=== PATIENT | female | born 1985 | race Hispanic/Latino ===

== ENCOUNTER 2018-01-28 18:32 | Emergency (ER) | payer OTHER ==
[~2018-01-28 18:32] MED LIST: LEVO500T2 PO; OSEL75 PO
[2018-01-28 19:06] LABS: APPEARANCE,URINE Clear (CLEAR); BILIRUBIN,URINE Negative (NEGATIVE); COLOR,URINE Yellow (YELLOW); GLUCOSE, URINE (UA) Negative (NEGATIVE); KETONES,URINE Negative (NEGATIVE); LEUKOCYTE ESTERASE ,URINE Negative (NEGATIVE); NITRATE,URINE Negative (NEGATIVE); OCCULT BLOOD,URINE Small (NEGATIVE); PH,URINE 6.5 (5.0-8.0); PROTEIN,URINE Negative (NEGATIVE)
[2018-01-28 19:09] LABS: HCG,QUAL RESULT NEGATIVE (NEGATIVE)
[2018-01-28] MEDS ORDERED: IPRATROPIUM/ALBUTEROL SULFATE 3 ML SOLUTION IH ONE (19:11)
[2018-01-28 19:15] LABS: WBC,URINE 0-1 /HPF (0-1)
[2018-01-28 19:16] LABS: BACTERIA,URINE Rare /HPF (None Seen); SQUAMOUS EPITHELIAL CELL,UR Few /HPF (0-2)
== END 2018-01-28 19:57 | disposition home or self-care (01) ==
LOC: EDH 18:32
DX: J18.9 Pneumonia, unspecified organism (principal)
CPT/HCPCS: 71046; 81001; 81025; 94640

== ENCOUNTER 2018-10-28 13:42 | Emergency (ER) | payer OTHER ==
[2018-10-28 14:42] LABS: APPEARANCE,URINE Clear (CLEAR); BILIRUBIN,URINE Negative (NEGATIVE); COLOR,URINE Yellow (YELLOW); GLUCOSE, URINE (UA) 500 mg/dL (NEGATIVE); KETONES,URINE Trace mg/dL (NEGATIVE); LEUKOCYTE ESTERASE ,URINE Small (NEGATIVE); NITRATE,URINE Negative (NEGATIVE); OCCULT BLOOD,URINE Moderate (NEGATIVE); PROTEIN,URINE Negative (NEGATIVE)
[2018-10-28 14:44] LABS: HCG,QUAL RESULT NEGATIVE (NEGATIVE)
[2018-10-28 14:46] LABS: BASOPHILS % (AUTO) 0.8 % (0.0-5.0); EOSINOPHILS % (AUTO) 1.2 % (0.0-8.0); HEMATOCRIT 41.7 % (36-48); LYMPHOCYTES % (AUTO) 22.9 % (21.0-51.0); MEAN CORPUSCULAR HGB CONC 34.3 g/dL (32.0-36.0); MEAN CORPUSCULAR VOLUME 90.4 fL (79-99); MONOCYTES % (AUTO) 8.9 % (3.0-13.0); NEUTROPHILS % (AUTO) 66.2 % (40.0-77.0); PLATELET COUNT (AUTO) 303 K/uL (130-400); RED BLOOD CELL COUNT(AUTO) 4.62 MIL/uL (4.00-5.50); RED CELL DISTRIBUTION WIDTH 11.9 % (11.0-15.5)
[2018-10-28] MEDS ORDERED: SODIUM CHLORIDE 0.9% 1000ML 1,000 ML IV ONE (15:11)
[2018-10-28] MEDS ORDERED: ONDANSETRON HCL 4 MG/2 ML VIAL ONE (15:11)
[2018-10-28] MEDS ORDERED: KETOROLAC TROMETHAMINE 30MG/ML ONE (15:12)
[2018-10-28 15:13] LABS: BACTERIA,URINE Moderate /HPF (None Seen); MUCUS,URINE Moderate LPF (None Seen)
[2018-10-28 15:14] LABS: ALBUMIN 3.6 g/dL (3.5-5.0); BILIRUBIN,TOTAL 0.4 mg/dL (0.2-1.0); CREATININE 0.8 mg/dL (0.5-1.5); TOTAL PROTEIN, SERUM 8.1 g/dL (6.0-8.3)
== END 2018-10-28 17:39 | disposition home or self-care (01) ==
LOC: EDH 13:42
DX: R10.10 Upper abdominal pain, unspecified (principal); R11.0 Nausea; R19.7 Diarrhea, unspecified
CPT/HCPCS: 36415; 76700; 80053; 81001; 81025; 82150; 83690; 85025; 96361; 96374; 96375; 99284; J1885; J2405; J7030

== ENCOUNTER 2020-12-21 22:05 | Emergency (ER) | payer OTHER ==
[2020-12-21] MEDS ORDERED: CYCLOBENZAPRINE HCL 10 MG TABLET ONE (22:23)
[2020-12-21] MEDS ORDERED: KETOROLAC TROMETHAMINE 60 MG/2 ML VIAL ONE (22:23)
[2020-12-21 22:44] LABS: BASOPHILS % (AUTO) 0.7 % (0.0-5.0); EOSINOPHILS % (AUTO) 2.2 % (0.0-8.0); HEMATOCRIT 38.8 % (36-48); LYMPHOCYTES % (AUTO) 31.1 % (21.0-51.0); MEAN CORPUSCULAR HEMOGLOBIN 30.2 pg (27.0-33.0); MEAN CORPUSCULAR HGB CONC 34.3 g/dL (32.0-36.0); MEAN CORPUSCULAR VOLUME 88.2 fL (79-99); MONOCYTES % (AUTO) 7.8 % (3.0-13.0); PLATELET COUNT (AUTO) 344 K/uL (130-400); RED CELL DISTRIBUTION WIDTH 11.6 % (11.0-15.5); WHITE BLOOD COUNT (AUTO) 11.9 K/uL (4.8-10.8)
[2020-12-21 22:49] LABS: APPEARANCE,URINE Clear (CLEAR); BILIRUBIN,URINE Negative (NEGATIVE); COLOR,URINE Yellow (YELLOW); GLUCOSE, URINE (UA) Negative (NEGATIVE); KETONES,URINE Negative (NEGATIVE); LEUKOCYTE ESTERASE ,URINE Negative (NEGATIVE); NITRATE,URINE Negative (NEGATIVE); OCCULT BLOOD,URINE Moderate (NEGATIVE); PROTEIN,URINE Negative (NEGATIVE)
[2020-12-21 22:51] LABS: HCG,QUAL RESULT NEGATIVE (NEGATIVE)
[2020-12-21 22:55] LABS: CREATININE 0.8 mg/dL (0.5-1.5); POTASSIUM 3.4 mmol/L (3.5-5.1)
[2020-12-21] MEDS ORDERED: POTASSIUM BICARB/CIT AC 25 MEQ TABLET.EFF ONE (23:13)
== END 2020-12-21 23:43 | disposition home or self-care (01) ==
LOC: EDH 22:05
DX: M94.0 Chondrocostal junction syndrome [Tietze] (principal); E87.6 Hypokalemia
CPT/HCPCS: 36415; 71045; 80048; 81001; 81025; 84484; 85025; 93005; 96372; 99285; J1885

== ENCOUNTER 2023-06-24 12:57 | Emergency (ER) | payer OTHER ==
[~2023-06-24] VITALS: Ht 152.4 cm; Wt 86.2 kg
[2023-06-24 13:37] LABS: RAPID GROUP A STREP negative (NEGATIVE)
[2023-06-24 13:41] LABS: SARS-CoV-2, RNA, NAAT NEGATIVE SARS CoV-2 (NEGATIVE)
[2023-06-24 13:53] LABS: INFLUENZA TYPE A Negative For Type A (NEGATIVE); INFLUENZA TYPE B Negative For Type B (NEGATIVE)
[2023-06-24] MEDS ORDERED: LORA10TA7 PO (16:01)
[2023-06-24] MEDS ORDERED: FLUT16H NASAL (16:01)
[2023-06-24] MEDS ORDERED: BENZ200C53 PO (16:01)
[2023-06-24] MEDS ORDERED: AZIT250T9 PO (16:01)
[2023-06-24 16:03] VITALS: BP 110/72; PULSE 100; RESP 16; O2SAT 98
== END 2023-06-24 16:08 | disposition home or self-care (01) ==
LOC: EDH 12:57
DX: J01.90 Acute sinusitis, unspecified (principal); R05.9 Cough, unspecified; Z20.822 Contact with and (suspected) exposure to COVID-19
CPT/HCPCS: 99283; 87635; 87880; 87804 ×2; C9803

== ENCOUNTER 2024-03-01 21:11 | Emergency (ER) | payer OTHER ==
[~2024-03-01] VITALS: Ht 152.4 cm; Wt 86.2 kg
[~2024-03-01 21:11] MED LIST changes: +AZIT250T9 PO; +BENZ200C53 PO; +FLUT16H NASAL; +LORA10TA7 PO
[2024-03-01 21:56] LABS: BASOPHILS # (AUTO) 0.05 K/uL (0.00-0.20); BASOPHILS % (AUTO) 0.5 % (0.0-5.0); EOSINOPHILS # (AUTO) 0.11 K/uL (0.00-0.70); HEMATOCRIT 39.8 % (36-48); IMMATURE GRANULOCYTE ABSOLUTE 0.05 K/uL (0-1); LYMPHOCYTES # (AUTO) 2.3 K/uL (1.0-4.8); MEAN CORPUSCULAR HGB CONC 33.9 g/dL (32.0-36.0); MEAN CORPUSCULAR VOLUME 85.6 fL (79-99); MONOCYTES # (AUTO) 0.9 K/uL (0.1-1.0); MONOCYTES % (AUTO) 8.4 % (3.0-13.0); NEUTROPHILS # (AUTO) 7.5 K/uL (1.8-7.7); NEUTROPHILS % (AUTO) 68.6 % (40.0-77.0); PLATELET COUNT (AUTO) 401 K/uL (130-400); RED BLOOD CELL COUNT(AUTO) 4.65 MIL/uL (4.00-5.50); RED CELL DISTRIBUTION WIDTH 12.1 % (11.0-15.5); WHITE BLOOD COUNT (AUTO) 10.9 K/uL (4.8-10.8)
[2024-03-01 21:57] LABS: ADD UA MICROSCOPIC YES; APPEARANCE,URINE CLOUDY (CLEAR); BILIRUBIN,URINE NEGATIVE (NEGATIVE); COLOR,URINE YELLOW (YELLOW); GLUCOSE, URINE (UA) NEGATIVE (NEGATIVE); KETONES,URINE NEGATIVE (NEGATIVE); LEUKOCYTE ESTERASE ,URINE NEGATIVE Leu/uL (NEGATIVE); NITRATE,URINE NEGATIVE (NEGATIVE); OCCULT BLOOD,URINE MODERATE (NEGATIVE); PROTEIN,URINE 20 mg/dL (NEGATIVE); UROBILINOGEN,URINE 0.2 mg/dL (0.2-1.0)
[2024-03-01 21:59] LABS: HCG,QUALITATIVE URINE NEGATIVE (NEGATIVE); MUCUS,URINE RARE LPF (None Seen); RBC,URINE 51-100 /HPF (0-1); SQUAMOUS EPITHELIAL CELL,UR MOD /HPF (0-2)
[2024-03-01 22:07] LABS: POTASSIUM 3.4 mmol/L (3.5-5.1)
[2024-03-01 22:17] LABS: ALBUMIN 3.7 g/dL (3.5-5.0); BILIRUBIN,TOTAL 0.6 mg/dL (0.2-1.0); TOTAL PROTEIN, SERUM 8.2 g/dL (6.0-8.3)
[2024-03-01 23:43] VITALS: BP 135/70; PULSE 70; RESP 17; O2SAT 96
[2024-03-01] MEDS: LACTATED RINGERS 1000ML 1,000 ML IV ONE (23:56)
[2024-03-02] MEDS ORDERED: PANT40TA55 PO (00:05)
[2024-03-02] MEDS ORDERED: ACID16CA PO (00:05)
[2024-03-02] MEDS: KETOROLAC 15MG/ML VIAL (15MG/ML) IV ONE (00:36)
== END 2024-03-02 00:53 | disposition home or self-care (01) ==
LOC: EDH 21:11
DX: K80.50 Calculus of bile duct without cholangitis or cholecystitis without obstruction (principal); K52.9 Noninfective gastroenteritis and colitis, unspecified; Z79.899 Other long term (current) drug therapy; Z98.51 Tubal ligation status; Z98.890 Other specified postprocedural states
CPT/HCPCS: 99285; 74176; 76705; 96361; 82550; 84484; 80053; 83690; 85025; 81001; 81025; 36415; 93005; 96374; J7120; J1885